=== PATIENT | female | born 1935 | race Caucasian/White ===

== ENCOUNTER → 2019-02-13 | Outpatient (CLI) | payer SELFPAY | PROVIDERS: Family Provider Family Medicine; Visit Provider Internal Medicine Medical Oncology | DX: R93.89 Abnormal findings on diagnostic imaging of other specified body structures (principal); M25.551 Pain in right hip; M24.7 Protrusio acetabuli; G31.89 Other specified degenerative diseases of nervous system | CPT/HCPCS: 73502; 78315; A9561 ==

== ENCOUNTER 2019-07-17 14:20 | Outpatient (CLI) | payer MEDICARE, BC, SELFPAY ==
[2019-07-17 14:24] LABS: Basophils % 0.3 %; Eosinophils # 0.1 10^3/uL (0.0-0.8); Eosinophils % 0.6 %; Hemoglobin 14.9 g/dL (11.5-15.3); Lymphocytes # 1.4 10^3/uL (0.8-4.8); Mean Corpuscular HGB Conc 31.7 g/dL (30.0-36.0); Mean Corpuscular Volume 94.6 fL (81-99); Mean Platelet Volume 9.8 fL (7.4-10.4); Monocytes # 0.5 10^3/uL (0.2-0.9); Monocytes % 5.2 %; Neutrophils # 8.5 10^3/uL (1.8-7.7); Neutrophils % 80.6 %; Nucleated Red Blood Cells % 0 %; Platelet Count 217 10^3/cmm (130-400); Red Blood Count 4.97 10^6/uL (4.1-5.3); Red Cell Distribution Width 14.7 % (12.1-15.1); White Blood Count 10.5 10^3/uL (4.0-10.0)
[2019-07-17 15:32] LABS: Alanine Aminotransferase 14 U/L (0-33); Albumin Level 4.2 g/dL (3.5-5.2); Alkaline Phosphatase 90 IU/L (35-105); Anion Gap 16.9 (5-19); Aspartate Amino Transferase 23 U/L (0-32); Blood Urea Nitrogen 18 mg/dL (8-23); Calcium 10.1 mg/dL (8.5-10.5); Carbon Dioxide 29 mmol/L (22-29); Chloride 98 mmol/L (98-107); Globulin 2.8 g/dL (1.3-4.6); Glucose 87 mg/dL (65-115); Osmolality Calculated 286 mOsm/kg (285-295); Potassium 3.9 mmol/L (3.5-5.1); Sodium 140 mmol/L (136-145); Total Bilirubin 0.3 mg/dL (0.15-1.2)
== END 2019-07-17 14:21 | disposition home or self-care (01) ==
LOC: ONCMED 14:20
PROVIDERS: Family Provider Family Medicine; Visit Provider Internal Medicine Medical Oncology
DX: C21.1 Malignant neoplasm of anal canal (principal); Z79.899 Other long term (current) drug therapy
CPT/HCPCS: 80053; 85025

== ENCOUNTER 2019-07-19 06:10 | Outpatient (CLI) | payer MEDICARE, BC, SELFPAY ==
--- NOTE | 2019-07-22 12:29 | ONC FU_ITS ---
Dr. Thomas Patient Follow-Up Note Patient: Princess Chawla Unit #: [id number]: 1935 Dicatated By: Luis Thomas M.D.Date of Visit:Jul 19, 2019 Televisit Progress Note The patient has been informed that the visit may not be secure and acknowledged the information. I have explained the option of participating in a telephone visit during the [facility] to the patient. After being given an opportunity to ask questions about and discuss this type of visit, the patient verbally consented to proceeding with the telephone/video visit. The patient understands that this service replaces an office visit and they may be billed and /or responsible for any applicable copayments Chief Complaint: Squamous cell carcinoma of the anal canal. 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 She had presented to Dr. Cordero with rectal bleeding, and he noted a mass on her digital exam. She was then referred to Dr. Aguilar for further evaluation. His note mentions a distal rectal tumor palpable on the left posterior position and extending 3-4 cm proximal to the dentate line. She underwent colonoscopy on 11/12/2016. He was unable to advance the scope beyond the mid sigmoid:. Multiple biopsies of the mass were obtained. Pathology showed invasive nonkeratinizing squamous cell carcinoma, P16 positive. Staging CT scans of the chest, abdomen, and pelvis on 12/02/2016 showed evidence of bulky rectal neoplasm measuring 5.3 x 5 centimeters and extending a height of 7.8 cm. There was indistinct soft tissue thickening extending posteriorly and left posteriorly from the mass lesion into the presacral soft tissues, suspicious for presacral soft tissue involvement. There was no intra-abdominal, retroperitoneal, or pelvic masses or adenopathy noted. There were degenerative changes in the lumbar spine and in both hips. An infrarenal abdominal aortic aneurysm measures up to 4.4 cm in depth, 4.6 cm in width, and extended inferiorly to the bifurcation over a vertical height of about 7.4 cm. The chest showed evidence of chronic emphysema, but no evidence of neoplastic process. Staging PET/CT on 12/18/2016 showed 4.2 cm malignancy in the lower rectum with SUV 11.5. A 6 mm rounded lymph node anterior to the left side of the sacrum was felt to be suspicious with SUV 1.8. There was no evidence of any other metastatic involvement. She was recommended to undergo chemoradiation utilizing mitomycin-C and Xeloda for chemosensitization. She received her day 1 mitomycin-C on 12/27/2016. She continued Xeloda 1500 mg in the morning and 1000 mg in the evening on the days of radiation. She was able to tolerate 5 weeks of Xeloda at that dosage. It was held at that point due to a decline in performance status and development of grade 1 palmar plantar erythrodysesthesia. She continued her radiation and completed treatment on 02/16/2017 to a total dose of [address] scans of the chest, abdomen, and pelvis on 06/09/2017 showed markedly reduced size of the bulky rectal mass. There was evidence of new circumferential wall thickening of the terminal ileum, but without evidence of obstruction. There was unchanged infrarenal abdominal aortic aneurysm measuring 4.5 cm, and there was continued severe emphysema. There was no evidence of metastatic disease. She was then followed on observation/expectant management. Her medical illnesses include hypertension, dyslipidemia, asthma/COPD, and degenerative arthritis. She has a history of sick sinus syndrome, for which she has undergone placement of permanent pacemaker. She also is known to have abdominal aortic aneurysm. She has a previous history of smoking, less than 1 pack of cigarettes daily for 12 years. She quit smoking in 1982. INTERIM HISTORY: Abdominal ultrasound on 12/02/2017 showed dumbbell shaped aneurysm of the perirenal and infrarenal abdominal aorta measuring 3.3 x 3.36 cm approximately and 3.34 x 4.8 cm distally. There was extensive thrombosis noted in the lumen of the aneurysm and there was significant narrowing of the lumen of the infrarenal aneurysm. Surveillance CT scans on 06/08/2018 showed now evidence of disease progression in the chest, abdomen, or pelvis. Her repeat CT scans on 01/01/2019 showed no evidence of metastatic disease throughout the chest, abdomen, or pelvis. There was evidence of severe emphysema. The appearance of the endovascular stent grafting of her abdominal aortic aneurysm appeared stable with no evidence of endovascular leak. There were advanced degenerative changes in the spine and hips, particularly the right hip, which showed evidence of joint effusion and extension to involve the muscles and soft tissues, with septic arthritis noted to be a consideration. There was new sclerosis of the sacrum due to insufficiency fractures with healing. She continued on observation/expectant management. She has scheduled followup today by Televisit. Her main complaint is that she has been having quite a bit of pain in her right hip. She says it crunches when she walks, and it is severely limiting her activity. Her ECOG score is 3. Her appetite is not as good. She has not had fever. She says she occasionally wakes up ringing wet. She has not had sore mouth or throat, and she has no difficulty swallowing. Her breathing comes and goes. She does have shortness of breath, and she is on nebulizers every 4 hours. She does not have home oxygen, though. She has some cough. She does not complain of chest pain. She has no GI complaints. In particular, she has been having no problems with her bowel function. She says she has been voiding more frequently, but her urination has not been as forceful. She also has some joint pain in her knees. She does not complain of headache or dizziness. She has no numbness/paresthesia or other focal neurologic symptoms. She does complain that she has been having some swelling in her feet. She reports no problems with anxiety or depression, and she says she has been sleeping okay at night. Medications: Albuterol Sulfate Aerosol Powder, Breath Activated Inhalation PRN, AmLODIPine Besylate 1 (2.5 mg) Tablet Oral daily, Aspirin 1 Tablet (of 81 mg) Tablet, chewable Oral daily, Atrovent HFA 2 puff(s) (of 17 mcg/act) Aerosol, solution Inhalation four times a day, Nitroglycerin Tablet, sublingual Sublingual PRN, PredniSONE 1 (5 mg) Tablet Oral daily, TraZODone HCl 1 (100 mg) Tablet Oral at bedtime, ZyrTEC Allergy (10 mg) Tablet Oral daily Allergies: Soma Lab/Imaging: CBC shows hemoglobin 14.9 g, White blood cell count 10,500, and platelet count 217,000. Comprehensive metabolic profile is unremarkable except for borderline renal function with BUN 18 and creatinine 1.1 mg/dL. Impression: 1. Patient with non-keratinizing squamous cell carcinoma of the anal canal, P16 positive. By clinical evaluation her disease appeared to be at least stage IIIA (T3, N1, M0) and possibly stage IIIB (T4, N1, M0) based on suspected presacral soft tissue involvement. Her other medical doses include: 2. Hypertension. 3. Dyslipidemia. 4. Asthma/COPD. 5. She has undergone placement of permanent pacemaker for sick sinus syndrome. 6. She has known abdominal aortic aneurysm. She underwent chemoradiation utilizing mitomycin-C and Xeloda for chemosensitization. She received day 1 mitomycin C on 12/27/2016. She was able to tolerate 5 weeks of Xeloda 1500 mg in the morning and 1000 mg in the evening on the days of radiation. The Xeloda was held due to a performance status decline and development of grade 1 palmar plantar erythrodysesthesia. She completed radiation on 02/16/2017 to a total dose of 5040 cGy. Overall, she tolerated treatment pretty well. She appeared to have had a very good response by follow-up CT scan. She had gradual recovery following the treatment. During follow-up she has had somewhat marginal performance status, and she reported worsening pain in her lower back and right hip area. Her surveillance CT scans in December 2018 showed no evidence for recurrence of the anal canal cancer, but there were significant findings in the bone, especially the right hip joint. During follow-up she has continued to have worsening pain in the right hip, to the point that her activity now is very restricted. Treatment options for that, unfortunately, are limited. However, thus far during follow-up there is been no evidence of recurrence of the anal canal cancer. Plan: She remains on observation/expectant management for the anal canal cancer. I will plan a follow-up visit with surveillance CT scans in 6 months. Signed By: Luis Thomas M.D. <<Signature on File>>
== END 2019-07-19 06:11 | disposition home or self-care (01) ==
LOC: ONCMED 06:13
PROVIDERS: Family Provider Family Medicine; Visit Provider Internal Medicine Medical Oncology
DX: Z08 Encounter for follow-up examination after completed treatment for malignant neoplasm (principal); Z85.048 Personal history of other malignant neoplasm of rectum, rectosigmoid junction, and anus; M25.551 Pain in right hip; M25.451 Effusion, right hip; I10 Essential (primary) hypertension; E78.5 Hyperlipidemia, unspecified; J44.9 Chronic obstructive pulmonary disease, unspecified; Z95.0 Presence of cardiac pacemaker; I71.4 Abdominal aortic aneurysm, without rupture; Z92.21 Personal history of antineoplastic chemotherapy; Z92.3 Personal history of irradiation

== ENCOUNTER 2020-08-01 10:23 | Outpatient (CLI) | payer MEDICARE, BC, SELFPAY ==
--- NOTE | 2020-08-01 11:00 | USCV_ITS ---
Princess Chawla Age: 85 Gender: F : 1935 Exam Date: 08/01/2020 10:56 Ordering Phys: Rey Valencia MD ([email or web address]) Technologist: Exam Location: [facility] [place] Indication: HX OF STENT HISTORY: AAA Diameter (cm) AP x Transverse x Length Velocity (cm/s) Waveform Prox Aorta: x x Mid Aorta: x x Distal Aorta: x x Right Iliac Prox: x x Left Iliac Prox: x x Stent Prox Landing 1.93 x 2.45 x 65.60 Aneurysmal Sac Max 5.03 x 4.37 x 36.90 Lt Lat Sac Dim 1.15 Rt Lat Sac Dim 1.66 Stent Dist Landing 2.30 x 2.75 x 60.30 Right Iliac Stent 1.22 x 1.36 x 63.40 Left Iliac Stent 1.40 x 1.54 x 59.70 Right Renal Art 158.60 Left Renal Art 89.90 FINDINGS: NORMAL STENT NO FLOW IN SAC AROUND STENT The aneurysmal sac measuring 5.03 x 4.37 cm in diameter. The landing zones were not identified well. The proximal stent graft measured 1.93 x 2.45 cm. The distal stent graft measured 2.3 x 2.75 cm. The accidents were found to be widely patent Normal Doppler flow velocities in the aorta CONCLUSIONS 1. Patent aortic stent graft. 2. No evidence of any endoleak by color flow Doppler examination 3. Patent common iliac arteries bilaterally, in the stented regions. 4. Elevated Doppler velocity in the right renal artery, suggestive of less than 60% stenosis. Compared to the study from 01/01/2019, there may not be a significant change Dr Rey Valencia MD [facility] (Electronically Signed) Final Date: 02 August 2020 13:27 S
== END 2020-08-01 10:24 | disposition home or self-care (01) ==
LOC: RAD 10:27
PROVIDERS: PCP Family Medicine; Visit Provider Internal Medicine Cardiovascular Disease
DX: I71.4 Abdominal aortic aneurysm, without rupture (principal)
CPT/HCPCS: 93978

== ENCOUNTER → 2020-11-13 15:41 | Outpatient (BNVA) | payer MEDICARE, BC, SELFPAY | PROVIDERS: PCP Family Medicine; Visit Provider Internal Medicine Cardiovascular Disease | DX: Z01.818 Encounter for other preprocedural examination (principal); I50.33 Acute on chronic diastolic (congestive) heart failure; I10 Essential (primary) hypertension; Z20.822 Contact with and (suspected) exposure to COVID-19; Z95.0 Presence of cardiac pacemaker; Z98.890 Other specified postprocedural states; Z79.82 Long term (current) use of aspirin | CPT/HCPCS: 80048; 83880; 85025; 85610; 87635 ==

== ENCOUNTER 2020-11-20 15:30 | Observation (INO) | payer MEDICARE, BC, SELFPAY ==
[2020-11-20 11:49] VITALS: BP 147/86; PULSE 71; RESP 18; TEMP 36.5; O2SAT 96; BMI 15.7
[2020-11-20 13:19] VITALS: PULSE 84; RESP 20; O2SAT 95
--- NOTE | 2020-11-20 13:37 | W.PM.OPSUD ---
Surgery/Procedure H&P Update DATE OF PROCEDURE: November 20, 2020 DATE H&P PERFORMED: 11/13/20 H&P UPDATE INFORMATION: I have reviewed H&P completed within last 30 days, I have examined patient prior to procedure and No changes to prior documentation PREOP DIAGNOSIS: Pacemaker MIRIAM PRIMARY INDICATION FOR PROCEDURE: Pacemaker MIRIAM PLANNED PROCEDURE: Operation Date: 11/20/20 12:00 Proposed Procedures p Pacemaker Generator Change(Not Applicable) - Rey Valencia MD PATIENT REASSESSED PRIOR TO SEDATION, WITH NO CHANGE NOTED: Yes PHYSICAL EXAM: alert and clear to auscultation bilaterally (Bilateral expiratory wheezing) AIRWAY EVAL/ANESTHESIA PLAN: normal airway, see other exam findings, ASA III, Monitored Anesthesia, Local Anesthesia, Risks, benefits & alternatives of sedation and/or procedure discussed and Patient agrees to continue as planned
[2020-11-20 14:29] VITALS: BP 107/59; PULSE 72; RESP 17; TEMP 36.8; O2SAT 90
[2020-11-20 15:09] VITALS: BMI 15.7
--- NOTE | 2020-11-20 15:37 | P.OP_ITS ---
Operative Report Date of procedure: November 20, 2020 Pre-op Diagnosis: Pacemaker MIRIAM Procedure: PROCEDURE: PACEMAKER REVISION PREOPERATIVE DIAGNOSIS: Pacemaker elective replacement indication. POSTOPERATIVE DIAGNOSIS: Pacemaker elective replacement indication. ESTIMATED BLOOD LOSS: Around 5 milliliters. COMPLICATIONS: None. BRIEF HISTORY: The patient is 85-year-old white female who had a permanent pacemaker implantation for symptomatic bradycardia. The patient was found to have elective replacement indication, during routine office followup evaluation. For further management of patient's condition for the symptomatic bradycardia, the patient required a pacemaker revision. Patient required a dual-chamber pacemaker for and the need for AV synchrony The procedure was explained to the patient and in detail with the risks and benefits. The risks of bleeding, hematoma, vascular injury, infection and other concomitant complications were explained in detail, which the patient understood well and consented to proceed. PROCEDURES PERFORMED: 1. Explantation of the old pacemaker generator. 2. Implantation of the new generator. The patient brought to the Cardiac Business Support Specialist. The left side of the neck and the subclavian area were cleaned and draped in a sterile fashion. 1% Xylocaine was used for local anesthetic agent. A 2 inch long incision was made just below the previous pacemaker scar. By sharp and blunt dissection, the pacemaker pocket was accessed. The old generator was delivered from the pocket. The generator was detached from the lead. The new Medtronic generator was attached to the lead. The pacemaker pocket was copiously irrigated with vancomycin solution. Complete hemostasis was achieved. The lead was positioned behind the generator and the generator was placed in the antibiotic pouch. Sponge counts were confirmed. The pacemaker pocket was closed in layers. Skin was approximated using 4-0 Vicryl. EXPLANTED DEVICE: Pacemaker Generator: Brand: Adapta Model number: [id number]. Serial number: [id number]. Date of implant: 01/22/2009 IMPLANTED DEVICES: Ventricular Lead: Date of implantation: 02/29/1996 Model number: [id number]/[id number] Serial number: [id number] Make: Medtronic. Atrial lead Date of implantation: 02/29/1996 Model number: [id number]/[id number] Serial number: [id number] Make: Medtronic. Implanted Generator: Date of implantation : 11/20/2020 Brand: Sherice XT DR YARA Marcelino. Model number: [id number] Serial number: [id number] Make: Medtronic Antibiotic pouch TYRX [id number]# [id number] Stimulation Threshold: The ventricular sensing was 6.8 millivolts. Ventricular lead impedance was 608 ohms and the pacing threshold was 0.75 volts at .4 milliseconds. The atrial sensing was 1.4 millivolts. Atrial lead impedance was 304 ohms and the pacing threshold was 0.75 volts at 0.4 milliseconds. The pacemaker was set for AAIR/DDDR mode with an upper rate of 130 and a lower rate of 60. The mode switch was turned on. A pressure dressing was applied over the pacemaker site. The patient was transferred back to medical floor in stable condition. Sponge counts were correct.
[2020-11-20] MEDS: sodium chloride 0.9% 1,000 ML 75 ML IV (15:41)
[2020-11-20 19:30] VITALS: PULSE 89; RESP 16; O2SAT 96
[2020-11-20] MEDS: trazodone 100 mg Tablet PO (20:21)
[2020-11-20] MEDS: ceFAZolin 1,000 MG in sodium chloride 0.9% (plus) 50 ML 100 MG IV (20:21)
[2020-11-20 21:14] VITALS: BP 127/64; PULSE 78; RESP 17; TEMP 36.9; O2SAT 98
[2020-11-21 00:40] VITALS: BP 124/73; PULSE 82; RESP 18; TEMP 36.3; O2SAT 97
[2020-11-21] MEDS: sodium chloride 0.9% 1,000 ML 75 ML IV (03:20)
[2020-11-21] MEDS: ceFAZolin 1,000 MG in sodium chloride 0.9% (plus) 50 ML 100 MG IV ×2 (04:55→11:12)
[2020-11-21 05:06] VITALS: BP 127/73; PULSE 72; RESP 17; TEMP 36.6; O2SAT 92
--- NOTE | 2020-11-21 06:00 | ECG_ITS ---
[facility] Test Date: 2020-11-21 Pat Name: Princess Chawla Department: Room: 264 Gender: Female Executive Chef: : 1935 Requested By: Rey Valencia Order Number: [id number] Reading MD: Gayle Connell M.D. Measurements Intervals [place] Rate: 70 P: 73 OK: 129 QRS: -81 QRSD: 69 T: 30 QT: 401 QTc: 433 Interpretive Statements SINUS RHYTHM WITH OCCASIONAL ECTOPIC PREMATURE COMPLEXES WITH DEMAND ATRIAL PACING LOW QRS VOLTAGE [QRS DEFLECTION < 0.5/1.0 mV IN LIMB/CHEST LEADS] INFERIOR MYOCARDIAL INFARCTION , PROBABLY OLD [40+ ms Q WAVE AND/OR ST/T ABNORMALITY IN II/aVF] ANTEROSEPTAL MYOCARDIAL INFARCTION , OF INDETERMINATE AGE [40+ ms Q WAVE IN V1-V4] Compared to ECG 04/03/2018 12:04:14 Left-axis deviation no longer present Myocardial infarct finding still present Electronically Signed On 11-21-2020 9:40:32 CDT by Gayle Connell M.D. [id number]
[2020-11-21 07:34] VITALS: BP 116/64; PULSE 77; RESP 19; TEMP 36.4; O2SAT 92
[2020-11-21 07:51] VITALS: PULSE 80; RESP 18; O2SAT 99
[2020-11-21] MEDS: amlodipine 5 mg Tablet 2.5 MG PO (08:19)
[2020-11-21] MEDS: predniSONE 5 mg Tablet PO (08:19)
[2020-11-21] MEDS: FUROsemide 20 mg Tablet PO (08:19)
[2020-11-21] MEDS: aspirin 81 mg EC Tablet PO (08:19)
--- NOTE | 2020-11-21 09:00 | P.DS_ITS ---
Discharge Providers Date of Admission: 11/20/20 15:30 Date of Discharge: November 21, 2020 Attending Provider at Admission: Rey Valencia MD Attending Provider at Discharge: Melquiades Dale MD Primary Care Provider: Felicia Parker MD Reason for Visit Reason for Visit: Pacemaker generator exchange Hospital Course Hospital Course 85 year old female who presents for an abdominal aortic aneurysm, hypertension and hyperlipidemia underwent the pacemaker generator exchange yesterday. She stayed stable during the hospital stay. Pacemaker functioning appropirately. Pacemaker site is normal. She will follow with cardiology as outpatient Physical Exam Narrative: EXAM NARRATIVE: GENERAL: Patient is alert, awake and oriented x3.Pacemaker skin site is normal [] NECK: No jugular vein distension. [] HEENT: No cyanosis. No icterus. No pallor. [] HEART: Regular S1 and S2. No murmur, rub or gallop. [] LUNGS: Clear to auscultate bilaterally. [] ABDOMEN: Soft, nontender and nondistended. Positive bowel sounds. No guarding, rebound or tenderness. [] CENTRAL NERVOUS SYSTEM: Grossly nonfocal. [] EXTREMITIES: Lower extremities with 1+ edema bilaterally. Pulses palpable in the lower extremities, both dorsalis pedis and posterior tibial. 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 Routin e Exams 11/20/20 11:00 Completed Vitals: Last Vital Signs Temp 97.5 F L 11/21/20 07:34 Pulse 80 11/21/20 07:51 Resp 18 11/21/20 07:51 BP 116/64 11/21/20 07:34 Pulse Ox 99 11/21/20 07:51 Discharge Plan Discharge Patient Disposition: Home Condition: Stable Prescriptions: New multivitamin Tablet 1 tab PO DAILY Qty: 14 RF: 0 Continued ipratropium bromide 17 mcg/actuation HFA aerosol inhaler 1 puff inhalation Q4H PRN (Reason: shortness of breath or wheezing) RF: 0 albuterol sulfate 90 mcg/actuation HFA aerosol inhaler 1 puff inhalation QID PRN (Reason: shortness of breath or wheezing) RF: 0 prednisone 5 mg tablet 5 mg PO DAILY RF: 0 trazodone 100 mg tablet 100 mg PO .bedtime RF: 0 amlodipine 2.5 mg tablet 2.5 mg PO DAILY RF: 0 nitroglycerin [Nitrostat] 0.4 mg tablet, sublingual 0.4 mg sublingual Q5M PRN (Reason: Chest Pain) RF: 0 aspirin [Adult Aspirin Regimen] 81 mg tablet,delayed release (DR/EC) 81 mg PO DAILY RF: 0 No Action furosemide 40 mg tablet 40 mg PO DAILY Qty: 60 RF: 5 potassium chloride [Klor-Con 8] 8 mEq tablet extended release 16 meq PO DAILY Qty: 60 RF: 5 Discharge Orders: Discharge Order (Routine); Ordered 11/21/20 Ordered By: Melquiades Dale Referrals: Rey Valencia MD [Physician] - 12/22/20 11:15 am Kandy Liu FNP [Nurse Practitioner] - 11/28/20 9:30 am Discharge Diet: Advance as tolerated Discharge Activity: Increase activity as tolerated Patient Instructions: Cephalexin (By mouth) (Bio-Cef, Keflex), Multivitamins, Adult Formula (By mouth) (Daily Multiple Vitamins,..., Pacemaker (DC), Opioid Safety, Post Pacemaker - Erik Discharge Attestations Time Spent in Discharge Care*: less than 30 min Quality Metrics Clinical Quality Measures During this hospital stay, did patient experience: None Coding Level of Care Code Acute Chg FW DC note
--- NOTE | 2020-11-21 11:19 | PC.CHAP ---
Pastoral Care Encounter/Spiritual Assessment Type of Contact [] Declined art conservator visit [] Patient/Family/Request visit [] Outpatient visit [] Follow-up visit [] Physician referral [] Code/Alert [x] Routine visit [] Staff referral [] Actively dying [] Patient sleeping [] Family support [] [] Out of room [] Palliative care [] [] Receiving care in room [] Pre-surgical visit [] Trauma [] Long length of stay [] ICU visit [] Other: Relational/Emotional Strength [] Patient feels connected with others/family/visitors/staff [] Distress [] Loneliness/isolation [] Abandonment Spirituality of Patient [] Person of [place] [] Attends Alevism of their [place] [] Believes in Prayer [] Reads Bible or Protestant materials [] There are Spiritual issues to be addressed Supervisor Cell Efficiency Interventions [x] Prayer [x] Active listening [x] Non-anxious presence [x] Spiritual/emotional support [] Crisis/trauma care [] Spiritual counseling [] Bereavement support [] Provided bereavement packet [] Provided Bible/devotional materials [] Provided toy/stuffed animal, coloring book to patient or family member [] Provided Communion [] Anointing/[place] [] Salvation [x] Completed spiritual assessment [] Other: Impact on Illness or Injury [] Angry [] Fearful [] Anxious [] Often cries [] Exhaustion [] Unable to work [] Unable to attend jainism [] Unable to walk/stand [] Unable to read [] Unable to drive [] Unable to eat/drink [] Unable to sleep [] Unable to be with family [] Patient intubated [] Other: Summary delightful patient... ready to return home. Time spent with patient 5 min
--- NOTE | 2020-11-21 12:32 | PC.NURSE ---
patient verbalizes understanding of discharge instructions, home medications, and follow up appointments. IV has been removed and patient states that her ride will be here at 1315.
[2020-11-21 13:29] VITALS: PULSE 80; RESP 18; O2SAT 99
--- NOTE | 2020-11-26 11:24 | PC.SOCIAL ---
discharge follow up call made, spoke with patient. she denies any pain after pacemaker battery change. patient is taking home medications as directed. she is aware of follow up appointments with axel fletcher and dr. delgadillo. patient denies questions or concerns.
== END 2020-11-21 13:29 | disposition home or self-care (01) ==
LOC: MEDSURG 15:48
PROVIDERS: Admitting Provider Internal Medicine Cardiovascular Disease; PCP Family Medicine; Visit Provider Internal Medicine Cardiovascular Disease
DX: Z45.010 Encounter for checking and testing of cardiac pacemaker pulse generator [battery] (principal); I10 Essential (primary) hypertension; E78.2 Mixed hyperlipidemia; Z79.82 Long term (current) use of aspirin; Z79.52 Long term (current) use of systemic steroids; Z82.49 Family history of ischemic heart disease and other diseases of the circulatory system; Z82.3 Family history of stroke; Z87.891 Personal history of nicotine dependence
CPT/HCPCS: 33213; 36415; 93005; 94640; 97165; C1769; C1786; G0378; J0690; J2250; J2405; J3010; J3535; J7030; J7050; J7512; J7611

== ENCOUNTER → 2020-11-24 11:19 | Outpatient (BNVA) | payer MEDICARE, BC, SELFPAY | PROVIDERS: PCP Family Medicine; Visit Provider Internal Medicine Cardiovascular Disease | DX: Z98.890 Other specified postprocedural states (principal); Z86.79 Personal history of other diseases of the circulatory system; Z86.39 Personal history of other endocrine, nutritional and metabolic disease | CPT/HCPCS: 80048; 83880; 85025 ==

== ENCOUNTER → 2020-12-09 11:26 | Outpatient (BNVA) | payer MEDICARE, BC, SELFPAY | PROVIDERS: PCP Family Medicine; Visit Provider Internal Medicine Cardiovascular Disease | DX: R06.02 Shortness of breath (principal); Z86.39 Personal history of other endocrine, nutritional and metabolic disease | CPT/HCPCS: 80048; 83880 ==

== ENCOUNTER → 2020-12-22 11:57 | Outpatient (BNVA) | payer MEDICARE, BC, SELFPAY | PROVIDERS: PCP Family Medicine; Visit Provider Internal Medicine Cardiovascular Disease | DX: I50.33 Acute on chronic diastolic (congestive) heart failure (principal); R06.02 Shortness of breath; I95.9 Hypotension, unspecified; Z98.890 Other specified postprocedural states; Z95.0 Presence of cardiac pacemaker; Z86.39 Personal history of other endocrine, nutritional and metabolic disease | CPT/HCPCS: 80048; 83880 ==

== ENCOUNTER → 2021-08-18 09:32 | Outpatient (BNVA) | payer MEDICARE, BC, SELFPAY | PROVIDERS: PCP Family Medicine; Visit Provider Internal Medicine Cardiovascular Disease | DX: I95.9 Hypotension, unspecified (principal); I49.8 Other specified cardiac arrhythmias; Z95.0 Presence of cardiac pacemaker; E78.5 Hyperlipidemia, unspecified; Z98.890 Other specified postprocedural states; I50.33 Acute on chronic diastolic (congestive) heart failure; N18.9 Chronic kidney disease, unspecified; Z87.891 Personal history of nicotine dependence | CPT/HCPCS: 36415; 80048; 83880; 84443; 99214 ==

== ENCOUNTER → 2021-10-16 10:49 | Outpatient (BNVA) | payer MEDICARE, BC, SELFPAY | PROVIDERS: PCP Family Medicine; Visit Provider Internal Medicine Cardiovascular Disease | DX: Z45.010 Encounter for checking and testing of cardiac pacemaker pulse generator [battery] (principal) | CPT/HCPCS: 93280 ==

== ENCOUNTER → 2022-02-22 10:59 | Outpatient (BNVA) | payer MEDICARE, BC, SELFPAY | PROVIDERS: PCP Family Medicine; Visit Provider Internal Medicine Cardiovascular Disease | DX: I49.8 Other specified cardiac arrhythmias (principal); Z95.0 Presence of cardiac pacemaker; E78.5 Hyperlipidemia, unspecified; I10 Essential (primary) hypertension; Z98.890 Other specified postprocedural states; Z87.891 Personal history of nicotine dependence; Z79.01 Long term (current) use of anticoagulants | CPT/HCPCS: 99213 ==

== ENCOUNTER → 2022-04-28 15:42 | Outpatient (BNVA) | payer MEDICARE, BC, SELFPAY | PROVIDERS: PCP Family Medicine; Visit Provider Internal Medicine Cardiovascular Disease | DX: Z45.010 Encounter for checking and testing of cardiac pacemaker pulse generator [battery] (principal) | CPT/HCPCS: 93296 ==

== ENCOUNTER → 2023-01-31 11:03 | Outpatient (BNVA) | payer MEDICARE, BC, SELFPAY | PROVIDERS: PCP Family Medicine; Visit Provider Internal Medicine Cardiovascular Disease | DX: Z45.010 Encounter for checking and testing of cardiac pacemaker pulse generator [battery] (principal) | CPT/HCPCS: 93296 ==

== ENCOUNTER → 2023-04-27 10:53 | Outpatient (BNVA) | payer MEDICARE, BC, SELFPAY | PROVIDERS: PCP Family Medicine; Visit Provider Internal Medicine Cardiovascular Disease | DX: Z98.890 Other specified postprocedural states (principal); I10 Essential (primary) hypertension; Z95.0 Presence of cardiac pacemaker; E78.5 Hyperlipidemia, unspecified; Z87.891 Personal history of nicotine dependence | CPT/HCPCS: 99214 ==

== ENCOUNTER → 2023-07-28 10:22 | Outpatient (BNVA) | payer MEDICARE, BC, SELFPAY | PROVIDERS: PCP Family Medicine; Visit Provider Internal Medicine Cardiovascular Disease | DX: Z45.010 Encounter for checking and testing of cardiac pacemaker pulse generator [battery] (principal) | CPT/HCPCS: 93296 ==

== ENCOUNTER → 2024-01-25 10:29 | Outpatient (BNVA) | payer MEDICARE, BC, SELFPAY | PROVIDERS: PCP Family Medicine; Visit Provider Internal Medicine Cardiovascular Disease | DX: Z45.018 Encounter for adjustment and management of other part of cardiac pacemaker (principal) | CPT/HCPCS: 93296 ==

== ENCOUNTER → 2024-04-25 09:16 | Outpatient (BNVA) | payer MEDICARE, BC, SELFPAY | PROVIDERS: PCP Family Medicine; Visit Provider Internal Medicine | DX: Z45.018 Encounter for adjustment and management of other part of cardiac pacemaker (principal) | CPT/HCPCS: 93296 ==

== ENCOUNTER → 2024-09-12 10:32 | Outpatient (BNVA) | payer MEDICARE, BC, SELFPAY | PROVIDERS: PCP Family Medicine; Visit Provider Internal Medicine Cardiovascular Disease | DX: Z45.018 Encounter for adjustment and management of other part of cardiac pacemaker (principal) | CPT/HCPCS: 93296 ==